=== PATIENT | female | born 1995 | race African-American/Black ===

== ENCOUNTER 2017-09-05 22:08 | Emergency (ER) | payer MEDICAID ==
[~2017-09-05] VITALS: Ht 157.5 cm; Wt 65.0 kg
[2017-09-05 22:10] VITALS: BP 137/65; PULSE 91; RESP 16; TEMP 98.5; O2SAT 100
--- NOTE | 2017-09-05 23:36 | PD ---
HPI Chief Complaint: Skin Problem Time Seen by Provider: 23:21 Travel History International Travel<30 days: Yes Contact w/Intl Traveler<30days: Yes Name of Country Traveled to: [place] Traveled to known affect area: Yes History of Present Illness HPI Patient comes in complaining of a rash over her anterior trunk ongoing for about a week. Patient states it was not itching her until her mother asked her if it was. Patient has been using Benadryl and [id number] creams with no improvement of symptoms. Patient reports rash started with a large area of the right outer upper quadrant of the right breast and then she began getting smaller spots on her trunk. Patient denies anything making it better or worse. Denies any known new allergen exposures. Denies any fevers, weight loss, or being unable similar rash. H&P was performed presence staffing and scheduling coordinator at all times. PFS Past Medical History Immunizations Current: Yes Tetanus Vaccination: Never Vaccinated Influenza Vaccination: No ?: Unknown LMP: 08/26/17 Social History Alcohol Use: No Tobacco Use: No Substance Use: No Allergies-Medications (Allergen,Severity, Reaction): Coded Allergies: No Known Allergies (Unverified , 09/05/17) Reported Meds & Prescriptions Reported Meds & Active Scripts Active No Active Prescriptions or Reported Medications Review of Systems Except as stated in HPI: all other systems reviewed are Neg Physical Exam Narrative GENERAL: Well-developed, well nourished, in no acute distress, and non-ill appearing. SKIN: Silvestre patch noted over right outer upper breast. Rashes appears to be somewhat [place] pattern. HEAD: Atraumatic. Normocephalic. EYES: Pupils equal and round. EOMI. No scleral icterus. No injection or drainage. ENT: No nasal bleeding or discharge. Mucous membranes pink and moist. NECK: Trachea midline. Supple. No nuclear rigidity. RESPIRATORY: No accessory muscle use. No respiratory distress. MUSCULOSKELETAL: No obvious deformities. No clubbing. No cyanosis. No edema. Full range of motion. NEUROLOGICAL: Awake and alert. No obvious cranial nerve deficits. Motor grossly within normal limits. Normal speech. PSYCHIATRIC: Appropriate mood and affect; insight and judgment normal. Data Data Last Documented VS Vital Signs Date Time Temp Pulse Resp B/P (MAP) Pulse Ox O2 Delivery O2 Flow Rate FiO2 09/05/17 23:49 09/05/17 22:10 98.5 91 16 100 Room Air Orders Orders Ed Discharge Order (09/05/17 23:29) MDM Medical Decision Making Medical Screen Exam Complete: Yes Emergency Medical Condition: Yes Differential Diagnosis Scabies, allergic reaction, cellulitis, abscess, pityriasis rosea Narrative Course The patient looks great and was non-ill appearing. There was no evidence to suggest scabies, cellulitis, folliculitis or abscess, Staph. Scalded Skin Syndrome, Toxic Shock, Toxic Epidermal necrolysis, Kawasakis, Measles, Rubella, cutaneous T cell lymphoma, Erythema Multiforme (minor or major). Plan of care was discussed with the patient and the patient is to follow up with their physician. The patient agreed with plan. Patient in no obvious distress upon re-evaluation. Any questions/concerns in reference to patient diagnosis/condition discussed and clarified prior to patient's discharge. Reinforced sheer importance of close follow up with patient 's primary physician or primary care clinic. Instructed patient to return to ED immediately, if symptoms return/worsen. Patient showed understanding of above instructions. Further instructions and recommendations were detailed in discharge paperwork. Patient ambulated without difficulty out of ED at discharge. Diagnosis Primary Impression: Pityriasis rosea Patient Instructions: General Instructions, Pityriasis rosea (ED) Additional Instructions: Follow-up with your primary care physician in 7-10 days for reevaluation. Use [id number] Claritin or Zyrtec or Benadryl as needed for itching. Follow instructions on the packaging. Return to the emergency department if symptoms get worse. Scripts No Active Prescriptions or Reported Meds Disposition: 01 DISCHARGE HOME Condition: Stable Alonso Kevin Sep 05, 2017 23:36
== END 2017-09-05 23:49 | disposition home or self-care (01) ==
LOC: NEPD 22:08
DX: L42 Pityriasis rosea (principal)
CPT/HCPCS: 99282

== ENCOUNTER 2018-10-07 20:31 | Inpatient (IN) ==
[2018-10-07] MEDS ORDERED: Vancomycin Inj 1,000 MG in Sodium Chlor 0.9% Inj 250 ML IV.SIG ONE (20:53)
[2018-10-07] MEDS ORDERED: Piperacil/Tazo 4.5 GM Premix 4.5 GM/100 ML BAG IV.SIG SCH (21:00)
[2018-10-07 21:56] LABS: Baso % (Auto) 0.3 % (0.0-2.0); Eos # (Auto) 0.2 th/mm3 (0.0-0.4); Eos % (Auto) 2.1 % (0.0-4.0); Hematocrit 34.4 % (35.0-46.0); Hemoglobin 11.6 gm/dL (11.6-15.3); Lymph # (Auto) 2.2 th/mm3 (1.0-4.8); Lymph % (Auto) 23.2 % (9.0-44.0); Mean Corpuscular HGB Conc 33.6 % (32.0-36.0); Mean Corpuscular Volume 80.2 fL (80.0-100.0); Mean Platelet Volume 8.1 fL (7.0-11.0); Mono # (Auto) 0.8 th/mm3 (0.0-0.9); Mono % (Auto) 8.3 % (0.0-8.0); Neut # (Auto) 6.2 th/mm3 (1.8-7.7); Neut % (Auto) 66.1 % (16.0-70.0); Platelet Count 370 th/mm3 (150-450); Red Blood Count 4.28 mil/mm3 (4.00-5.30); Red Cell Distribution Width 16.9 % (11.6-17.2); White Blood Count 9.4 th/mm3 (4.0-11.0)
--- NOTE | 2018-10-07 22:09 | ED ---
HPI General Chief complaint: Skin/Abscess/Foreign Body Stated complaint: lft leg boil Time Seen by Provider: 10/07/18 20:45 Source: patient Mode of arrival: ambulatory Limitations: no limitations History of Present Illness HPI narrative: This is a 23-year-old black female who presents emergency department complains of a left inner thigh infection. She was referred from the urgent care for further treatment in the ER after being treated twice prior. She states that she started approximately 10 days ago with redness, pain and swelling to the left inner thigh. She was seen 2 days ago at an urgent care and an incision and drainage has been performed. She was started on Bactrim and Keflex. She states that she was advised to return in 48 hours. She states that the area of redness, swelling and pain had gotten worse and she had had a subjective fever at home. So she was advised to come to the ER. Patient states that when she had her incision and drainage performed he did not seem to get significant pus to come out. Patient admits to feeling general malaise, increasing pain and subjective fever at home. Patient denies any nausea or vomiting. No abdominal pain. She denies any history of prior abscess. Related Data Home Medications Medication Instructions Recorded Confirmed cephalexin 500 mg PO QID 10/07/18 10/07/18 sulfamethoxazole-trimethoprim 1 tab PO BID 10/07/18 10/07/18 [Bactrim DS] Allergies Allergy/AdvReac Type Severity Reaction Status Date / Time No Known Allergies Allergy Unverified 11/08/17 13:30 Review of Systems ROS: all other systems reviewed are negative PMFSH Medical History Medical History Patient denies medical problems (Acute) Surgical History Surgical History No history of previous surgery (Acute) Family History Family History Other Family history normal Social History Social History Substance History: No History of Abuse Second Hand Smoke Exposure: No Smoking Status: Never smoker How Often Do You Have a Drink Containing Alcohol: Never Immunization History Tetanus Immunization: Unsure Exam Narrative Exam Narrative: GENERAL: Well-developed, well-nourished in no apparent distress. Nontoxic appearing. The patient is examined with the nurse present. HEAD: Normocephalic, atraumatic. EYES: Pupils equal round and reactive. Extraocular motions intact. No scleral icterus. No injection or drainage. ENT: Nose clear. Throat without erythema, tonsillar hypertrophy or exudate. Uvula midline. Airway patent. NECK: Trachea midline. Supple, nontender, moves head freely. No central bony tenderness or spasm. CARDIOVASCULAR: Regular rate and rhythm without murmurs, gallops, or rubs. RESPIRATORY: Clear to auscultation. Breath sounds equal bilaterally. No wheezes , rales, or rhonchi. GASTROINTESTINAL: Abdomen soft, non-tender, nondistended. No hepato-splenomegaly , or palpable masses. No guarding. EXTREMITIES: No clubbing, cyanosis, or edema. No joint tenderness. Examination of the patient's left inner thigh reveals a opening draining incision. Patient has surrounding erythema, warmth and induration. There is no fluctuance or pointing. The area measures approximately 8 x 8 cm. BACK: Nontender without deformity. No flank tenderness. NEUROLOGICAL: Awake, alert and oriented x 3 .Cranial nerves grossly intact. Motor and sensory grossly within normal limits. Normal speech. Course Reevaluation(s) Reevaluation #1: I was just notified that the patient has had mild hives associated with her vancomycin infusion. This has just completed. Patient denies any shortness of breath or difficulty swallowing. She does have a few scattered hives. Patient is given Benadryl 50 mg IV. Time: 23:23 Initial Documented Vital Signs Temperature 98.8 F 10/07/18 20:38 Pulse Rate 103 H 10/07/18 20:38 Respiratory Rate 18 10/07/18 20:38 Blood Pressure 135/62 10/07/18 20:38 Pulse Oximetry 100 10/07/18 20:38 Last Documented Vital Signs Temperature 98.6 F 10/08/18 16:05 Pulse Rate 88 10/08/18 16:05 Respiratory Rate 18 10/08/18 16:05 Blood Pressure 108/56 L 10/08/18 16:05 Pulse Oximetry 100 10/08/18 16:05 Medical Decision Making MDM Narrative Medical decision making narrative: IV access is obtained. Will send off for CBC , chemistry, blood cultures x2, wound culture. Patient is given vancomycin 1 g IV and Zosyn 4.5 mg IV. The patient has failed outpatient antibiotics and incision and drainage. I believe the patient will benefit from IV antibiotics. His has been discussed with the patient who agrees with the treatment plan Bedside ultrasound performed which shows cobblestoning but no localized abscess. This is performed in the presence of the nurse. I have who has agreed to admit the patient discussed the case with Dr. Smyth for IV antibiotics. Medical Screen Exam Complete: Yes Emergency Medical Condition: Yes Differential Diagnosis Differential Diagnosis: MDM: High Differential diagnoses: Abscess, folliculitis, cellulitis, lymphangitis, abrasion, contact dermatitis Lab Data Result diagrams: 10/08/18 07:36 10/08/18 07:36 Lab Results 10/07/18 10/07/18 10/08/18 Range/Units 21:49 21:49 07:36 WBC 9.4 5.6 (4.0-11.0) th/mm3 RBC 4.28 3.92 L (4.00-5.30) mil/mm3 Hgb 11.6 10.5 L (11.6-15.3) gm/dL Hct 34.4 L 32.5 L (35.0-46.0) % MCV 80.2 82.9 (80.0-100.0) fL MCH 27.0 26.9 L (27.0-34.0) pg MCHC 33.6 32.5 (32.0-36.0) % RDW 16.9 17.1 (11.6-17.2) % Plt Count 370 344 (150-450) th/mm3 MPV 8.1 8.6 (7.0-11.0) fL Neut % (Auto) 66.1 59.0 (16.0-70.0) % Lymph % (Auto) 23.2 27.3 (9.0-44.0) % [place] % (Auto) 8.3 H 9.8 H (0.0-8.0) % Eos % (Auto) 2.1 3.4 (0.0-4.0) % Baso % (Auto) 0.3 0.5 (0.0-2.0) % Neut # (Auto) 6.2 3.3 (1.8-7.7) th/mm3 Lymph # (Auto) 2.2 1.5 (1.0-4.8) th/mm3 [place] # (Auto) 0.8 0.5 (0.0-0.9) th/mm3 Eos # (Auto) 0.2 0.2 (0.0-0.4) th/mm3 Baso # (Auto) 0.0 0.0 (0.0-0.2) th/mm3 WBC Differential . . Differential Comment Auto diff final Auto diff final Sodium 136 (136-145) meq/L Potassium 3.2 L (3.5-5.1) meq/L Chloride 101 (98-107) meq/L Carbon Dioxide 25.5 (21.0-32.0) meq/L Anion Gap 10 (5-15) meq/L BUN 7 (7-18) mg/dL Creatinine 0.88 (0.50-1.00) mg/dL Estimated GFR Greater than 89 (>89) mL/min Random Glucose 85 (74-106) mg/dL Calcium 8.6 (8.5-10.1) mg/dL 10/08/18 Range/Units 07:36 WBC (4.0-11.0) th/mm3 RBC (4.00-5.30) mil/mm3 Hgb (11.6-15.3) gm/dL Hct (35.0-46.0) % MCV (80.0-100.0) fL MCH (27.0-34.0) pg MCHC (32.0-36.0) % RDW (11.6-17.2) % Plt Count (150-450) th/mm3 MPV (7.0-11.0) fL Neut % (Auto) (16.0-70.0) % Lymph % (Auto) (9.0-44.0) % [place] % (Auto) (0.0-8.0) % Eos % (Auto) (0.0-4.0) % Baso % (Auto) (0.0-2.0) % Neut # (Auto) (1.8-7.7) th/mm3 Lymph # (Auto) (1.0-4.8) th/mm3 [place] # (Auto) (0.0-0.9) th/mm3 Eos # (Auto) (0.0-0.4) th/mm3 Baso # (Auto) (0.0-0.2) th/mm3 WBC Differential Differential Comment Sodium 138 (136-145) meq/L Potassium 4.5 D (3.5-5.1) meq/L Chloride 108 H (98-107) meq/L Carbon Dioxide 22.2 (21.0-32.0) meq/L Anion Gap 8 (5-15) meq/L BUN 10 (7-18) mg/dL Creatinine 0.86 (0.50-1.00) mg/dL Estimated GFR Greater than 89 (>89) mL/min Random Glucose 72 L (74-106) mg/dL Calcium 8.6 (8.5-10.1) mg/dL Discharge Plan Discharge Disposition Patient Disposition: ED Admit(ED Internal Use Only) Discharge Condition Condition: Stable Discharge Order Discharge Orders: ED Use Only Admit Order (Routine); Ordered 10/07/18 Ordered By: Edmond Casiano Discharge Details Diagnosis: Abscess of left thigh, Cellulitis of left thigh Physicians Team ED Provider: Dena William ED Midlevel Provider: Edmond Casiano Primary Care Provider: Olive Tubbs Attending Provider: Andrea Guzman Status ED Status: Left Department Discharge Information Discharge Date/Time: 10/08/18 03:27
[2018-10-07 22:25] LABS: Anion Gap 10 meq/L (5-15); Blood Urea Nitrogen 7 mg/dL (7-18); Calcium 8.6 mg/dL (8.5-10.1); Carbon Dioxide 25.5 meq/L (21.0-32.0); Chloride 101 meq/L (98-107); Glomerular Filtration Rate Greater Than 89 mL/min (>89); Glucose,Random 85 mg/dL (74-106); Potassium 3.2 meq/L (3.5-5.1); Sodium 136 meq/L (136-145)
[2018-10-08] MEDS ORDERED: Vancomycin Consult Pharmacy OTHER PRN (02:30)
[2018-10-08] MEDS ORDERED: Bisacodyl 10 MG Supp RECTAL PRN (02:33)
[2018-10-08] MEDS ORDERED: Acetaminophen 325 MG Tablet PO PRN (02:33)
--- NOTE | 2018-10-08 03:28 | P.HP ---
History of Present Illness Service: [facility] Primary Care Physician: Olive Tubbs MD History of Present Illness: 23-year-old female with no significant past medical history presents to the emergency department for evaluation of the return of a boil on her left inner thigh. The patient was seen in urgent care 2 days ago where she had it lanced and was discharged with a prescription of Bactrim. She reports compliance with her antibiotic however the boil returned and was draining a small amount of purulent material. The patient was sent to the emergency department for further evaluation. She denies any fever/chills. Inpatient Certification: I certify that the inpatient services were ordered in accordance with Medicare regulations governing the order. This includes certification that hospital inpatient services are reasonable and necessary and in the case of services not specified as inpatient-only under 42 CFR 419.22(n), that they are appropriately provided as inpatient services in accordance to with the 2-midnight benchmark under 43 CFR 412.3(e) Estimated Total Length of Stay (Days): 2 Plans for Post Hospital Care: Home Review of Systems All other systems reviewed negative except as stated in HPI [facility] - History History Provided By: Patient - Medical History Medical History: Medical History (Last Reviewed 10/08/18 @ 03:25 by Lashon Smyth MD) Patient denies medical problems - Surgical History Surgical History: Surgical History (Last Reviewed 10/08/18 @ 03:25 by Lashon Smyth MD) No history of previous surgery - Family History Family History: Family History (Last Updated 10/08/18 @ 03:25 by Lashon Smyth MD) Other Family history normal - Tobacco History Second Hand Smoke Exposure: No Tobacco Use In Past 30 Days: No Smoking Status: Never smoker - Alcohol History How Often Do You Have a Drink Containing Alcohol: Monthly or less - Substance Use History Substance History: No History of Abuse - Immunization History Tetanus Immunization: Unsure Medications and Allergies Active Medications: Active Medications Acetaminophen (Tylenol) 650 mg PO Q4H PRN PRN Reason: Temp > 100.4 Al Hydroxide/Mg Hydroxide (Milk Of Magnesia Liq) 30 ml PO Q12H PRN PRN Reason: Mild Constipation Bisacodyl (Dulcolax Supp) 10 mg RECTAL DAILY PRN PRN Reason: SEVERE CONSITIPATION Diphenhydramine HCl (Benadryl Inj) 50 mg IV.PUSH Q6H PRN PRN Reason: itching Piperacillin/Tazobactam/Dextrose (Zosyn 4.5 Gm Premix) 4.5 gm in 100 mls @ 200 mls/hr IV.SIG ONCE UMESH Last Infusion: 10/08/18 00:08 Dose: Infused Piperacillin/Tazobactam/Dextrose (Zosyn 3.375 Gm Premix) 3.375 gm in 50 mls @ 100 mls/hr IV.SIG Q6H UMESH Lactulose (Lactulose Liq) 30 ml PO DAILY PRN PRN Reason: SEVERE CONSITIPATION Ondansetron HCl (Zofran Inj) 4 mg IV.PUSH Q6H PRN PRN Reason: NAUSEA OR VOMITING Pharmacy Profile Note (Vancomycin Consult Pharmacy) 1 each OTHER UNSCH PRN PRN Reason: Pharmacy to dose Senna/Docusate Sodium (Lizz-Colace) 1 tab PO BID UMESH Sennosides (Senokot) 17.2 mg PO Q12H PRN PRN Reason: Moderate Constipation Sodium Chloride (Ns Flush) 2 ml IV.FLUSH BID UMESH Sodium Chloride (Ns Flush) 2 ml IV.FLUSH PRN PRN PRN Reason: FLUSH AFTER USING IV ACCESS Allergies Allergy/AdvReac Type Severity Reaction Status Date / Time No Known Allergies Allergy Unverified 11/08/17 13:30 Home Medications Medication Instructions Recorded Confirmed Type cephalexin 500 mg PO QID 10/07/18 10/07/18 History sulfamethoxazole-trimethoprim 1 tab PO BID 10/07/18 10/07/18 History [Bactrim DS] Exam Vital signs: Vital Signs 10/07/18 20:38 10/07/18 23:47 Temperature 98.8 F Pulse Rate 103 H 80 Respiratory Rate 18 18 Blood Pressure 135/62 112/57 L Pulse Oximetry 100 98 Intake & Output 10/07/18 10/07/18 10/08/18 06:59 18:59 06:59 Intake Total 350 / 350 Balance 350 / 350 Weight 64.864 kg Intake: IV 350 / 350 Zosyn 4.5 GM Premix 4.5 gm In 100 / 100 100 ml @ 200 mls/hr IV.SIG ONCE UMESH Rx#:[id number] Vancomycin Inj 1,000 MG In NS 250 / 250 Inj 250 ML @ 250 mls/hr IV.SIG ONCE ONE Rx#:[id number] Narrative: Gen.: No acute distress Head: Normocephalic. Atraumatic. EENT: Pupils equal round and reactive to light. Nose without drainage. Airway intact. Throat without injection. Cardiovascular: Regular rate and rhythm. No murmurs, rubs or gallops. Respiratory: Lungs clear to auscultation bilaterally. No wheezes or rhonchi. Abdomen: Soft, nontender, nondistended. No peritoneal signs. Musculoskeletal: No gross deformities. No edema. Skin: Open draining incision on the left inner thigh with surrounding erythema, warmth and induration. No fluctuance. Neuro: Sensory and motor grossly intact. Cranial nerves II through XII grossly intact. Results - Labs CBC & Chem 7: 10/07/18 21:49 10/07/18 21:49 Labs: Laboratory Results - last 24 hr 10/07/18 10/07/18 21:49 21:49 WBC 9.4 RBC 4.28 Hgb 11.6 Hct 34.4 L MCV 80.2 MCH 27.0 MCHC 33.6 RDW 16.9 Plt Count 370 MPV 8.1 Neut % (Auto) 66.1 Lymph % (Auto) 23.2 [place] % (Auto) 8.3 H Eos % (Auto) 2.1 Baso % (Auto) 0.3 Neut # (Auto) 6.2 Lymph # (Auto) 2.2 [place] # (Auto) 0.8 Eos # (Auto) 0.2 Baso # (Auto) 0.0 WBC Differential . Differential Comment Auto diff final Sodium 136 Potassium 3.2 L Chloride 101 Carbon Dioxide 25.5 Anion Gap 10 BUN 7 Creatinine 0.88 Estimated GFR Greater than 89 Random Glucose 85 Calcium 8.6 Caprini VTE Risk Assessment Caprini VTE Risk Assessment: No/Low Risk (score <= 1) Caprini Risk Assessment Model: Point Value = 1 Point Value = 2 Point Value = 3 Point Value = 5 Age 41-60 Minor surgery BMI > 25 kg/m2 Swollen legs Varicose veins or History of unexplained or recurrent spontaneous Oral contraceptives or hormone replacement Sepsis (< 1 month) Serious lung disease, including pneumonia (< 1 month) Abnormal pulmonary function Acute myocardial infarction Congestive heart failure (< 1 month) History of inflammatory bowel disease Medical patient at bed rest Age 61-74 Arthroscopic surgery Major open surgery (> 45 min) Laparoscopic surgery (> 45 min) Malignancy Confined to bed (> 72 hours) Immobilizing plaster cast Central venous access Age >= 75 History of VTE Family history of VTE Factor V Leiden Prothrombin [id number] Lupus anticoagulant Anticardiolipin antibodies Elevated serum homocysteine Heparin-induced thrombocytopenia Other congenital or acquired thrombophilia Stroke (< 1 month) Elective arthroplasty Hip, pelvis, or leg fracture Acute spinal cord injury (< 1 month) Prophylaxis Regimen: Total Risk Factor Score Risk Level Prophylaxis Regimen 0-1 Low Early ambulation 2 Moderate Order ONE of the following: *Sequential Compression Device (SCD) *Heparin 5000 units SQ BID 3-4 Higher Order ONE of the following medications: *Heparin 5000 units SQ TID *Enoxaparin/Lovenox 40 mg SQ daily (WT < 150 kg, CrCl > 30 mL/min) *Enoxaparin/Lovenox 30 mg SQ daily (WT < 150 kg, CrCl > 10-29 mL/min) *Enoxaparin/Lovenox 30 mg SQ BID (WT < 150 kg, CrCl > 30 mL/min) AND/OR *Sequential Compression Device (SCD) 5 or more Highest Order ONE of the following medications: *Heparin 5000 units SQ TID (Preferred with Epidurals) *Enoxaparin/Lovenox 40 mg SQ daily (WT < 150 kg, CrCl > 30 mL/min) *Enoxaparin/Lovenox 30 mg SQ daily (WT < 150 kg, CrCl > 10-29 mL/min) *Enoxaparin/Lovenox 30 mg SQ BID (WT < 150 kg, CrCl > 30 mL/min) AND *Sequential Compression Device (SCD) Assessment and Plan - Plan Assessment/plan: 1. Cellulitis failed outpatient therapy Status post 2 days of Bactrim without improvement Bedside ultrasound done in the emergency department revealed cobblestoning but no localized abscess Vancomycin/Zosyn Wound culture pending Blood cultures pending 2. Hypokalemia Potassium 3.2 Status post p.o. repletion Monitor BMP FEN Regular diet Electrolytes: As above
[2018-10-08] MEDS: Piperacil/Tazo 3.375 GM Premix 3.375 GM/50 ML PIGGYBACK IV.SIG SCH ×4 (06:25→23:31)
[2018-10-08] MEDS: Senna/Docusate Sodium 8.6/50 MG Tablet PO SCH ×2 (08:03→21:29)
[2018-10-08 09:11] LABS: Baso % (Auto) 0.5 % (0.0-2.0); Eos # (Auto) 0.2 th/mm3 (0.0-0.4); Eos % (Auto) 3.4 % (0.0-4.0); Hematocrit 32.5 % (35.0-46.0); Hemoglobin 10.5 gm/dL (11.6-15.3); Lymph # (Auto) 1.5 th/mm3 (1.0-4.8); Lymph % (Auto) 27.3 % (9.0-44.0); Mean Corpuscular HGB Conc 32.5 % (32.0-36.0); Mean Corpuscular Hemoglobin 26.9 pg (27.0-34.0); Mean Corpuscular Volume 82.9 fL (80.0-100.0); Mean Platelet Volume 8.6 fL (7.0-11.0); Mono # (Auto) 0.5 th/mm3 (0.0-0.9); Mono % (Auto) 9.8 % (0.0-8.0); Neut # (Auto) 3.3 th/mm3 (1.8-7.7); Platelet Count 344 th/mm3 (150-450); Red Blood Count 3.92 mil/mm3 (4.00-5.30); Red Cell Distribution Width 17.1 % (11.6-17.2); White Blood Count 5.6 th/mm3 (4.0-11.0)
[2018-10-08 09:55] LABS: Anion Gap 8 meq/L (5-15); Blood Urea Nitrogen 10 mg/dL (7-18); Calcium 8.6 mg/dL (8.5-10.1); Carbon Dioxide 22.2 meq/L (21.0-32.0); Chloride 108 meq/L (98-107); Glomerular Filtration Rate Greater Than 89 mL/min (>89); Glucose,Random 72 mg/dL (74-106); Potassium 4.5 meq/L (3.5-5.1); Sodium 138 meq/L (136-145)
[2018-10-08] MEDS: Vancomycin Inj 1,000 MG in Sodium Chlor 0.9% Inj 250 ML IV.SIG SCH ×3 (10:11→21:23)
--- NOTE | 2018-10-08 12:58 | P.PNADD ---
Addendum to Inpatient Note Reason for Addendum: Additional Documentation Additional information: S: Ms Daniel is being transferred to the Family Medicine inpatient service from [facility] since she is followed in the [facility] by Dr Tubbs. It is reported that when administering the first dose of Vancomycin that she had hives that appeared when administering the IV antibiotic, but they have disappeared when I am seeing her in her room. Otherwise, she has been fine overnight. She also reports having hives when taking the Bactrim prescribed to her in clinic two days ago. She is taking no other medications. I spoke to her mother via phone to explain why she is in the hospital to take IV antibiotics versus continued outpatient treatment with Bactrim. I also explained that wound culture was taken and is pending. We will plan to keep her overnight on IV antibiotics and pre-treat her with Benadryl to aid in the rash. Hopefully we will have a wound culture tomorrow with speciation to ensure discharge on a PO regimen sensitive to the bacterial culture. O: Vital Signs - 8 hr 10/08/18 07:58 10/08/18 12:15 Temperature 98.4 F 98.0 F Pulse Rate 95 H 87 Respiratory Rate 20 18 Blood Pressure 101/57 L 113/58 L Pulse Oximetry 100 100 GENERAL: 23 YO female lying in bed, comfortable and in NAD. SKIN: Warm and dry. Bandage over her proximal left medial thigh with dry staining on the bandage. When bandage is removed, there is a 4 mm punctate hole draining scant purulent material with surrounding 6 cm x 6 cm area of induration but no fluctuance. A scant amount of serosanguinous fluid expressed with deeper palpation. Area is TTP. Cellulitis appears to be nearly resolved. HEAD: Normocephalic. Atraumatic. MMM. EYES: No scleral icterus. No injection or drainage. EOMI. NECK: Supple, trachea midline. Normal thyroid. CARDIOVASCULAR: Regular rate and rhythm without murmurs, gallops, or rubs. RESPIRATORY: Breath sounds equal bilaterally. No accessory muscle use. GASTROINTESTINAL: Abdomen soft, non-tender, nondistended. MUSCULOSKELETAL: No cyanosis, or edema. Moves all spontaneously. A/P: 23 YO female with proximal medial left thigh furuncle s/p I&D 2 days ago failed outpt treatment with Bactrim and admitted for left thigh cellulitis. US of left thigh showing no appreciable fluid collection for repeat drainage. 1. Cellulitis failed outpatient therapy - resolving Status post I&D and 2 days of Bactrim without improvement Bedside ultrasound done in the emergency department revealed cobblestoning but no localized abscess -Continue Vancomycin 1g q12h IV with instructions given to pre-medicate with Benadryl IV and infuse Vancomycin over 1-2 hours -Benadryl 50 mg IV q6h PRN; pre-medicate prior to Vancomycin administration as above -Pharmacy Vancomycin consult -Continue Zosyn 3.375 gm q6h IV Wound culture pending Blood cultures pending -Pt advised to increase PO intake 2. Hypokalemia Potassium 3.2 Status post p.o. repletion Monitor BMP FEN/GI/PPx: Regular diet Electrolytes: As above PO fluids GI: No ppx indicated PPx: SCDs Tylenol 650 mg PO PRN pain/fever Dispo: 1-2 days DW Megha Maki and Megan
[2018-10-09] MEDS: Piperacil/Tazo 3.375 GM Premix 3.375 GM/50 ML PIGGYBACK IV.SIG SCH (06:03)
[2018-10-09 07:40] LABS: Hematocrit 33.6 % (35.0-46.0); Hemoglobin 11.2 gm/dL (11.6-15.3); Mean Corpuscular HGB Conc 33.3 % (32.0-36.0); Mean Corpuscular Hemoglobin 27.1 pg (27.0-34.0); Mean Corpuscular Volume 81.4 fL (80.0-100.0); Mean Platelet Volume 8.2 fL (7.0-11.0); Platelet Count 394 th/mm3 (150-450); Red Blood Count 4.12 mil/mm3 (4.00-5.30); Red Cell Distribution Width 16.9 % (11.6-17.2); White Blood Count 4.3 th/mm3 (4.0-11.0)
[2018-10-09 08:03] LABS: Anion Gap 10 meq/L (5-15); Blood Urea Nitrogen 10 mg/dL (7-18); Calcium 8.7 mg/dL (8.5-10.1); Carbon Dioxide 21.5 meq/L (21.0-32.0); Chloride 107 meq/L (98-107); Glomerular Filtration Rate Greater Than 89 mL/min (>89); Glucose,Random 88 mg/dL (74-106); Sodium 138 meq/L (136-145)
[2018-10-09 08:04] LABS: Glomerular Filtration Rate Greater Than 89 mL/min (>89)
[2018-10-09 08:07] LABS: Vancomycin,Trough 6.2 mcg/mL (5.0-10.0)
[2018-10-09] MEDS: Senna/Docusate Sodium 8.6/50 MG Tablet PO SCH (08:45)
[2018-10-09] MEDS ORDERED: Pharmacy Ordered Lab Info OTHER ONE (09:45)
[2018-10-09] MEDS: Vancomycin Inj 1,000 MG in Sodium Chlor 0.9% Inj 250 ML IV.SIG SCH (10:38)
--- NOTE | 2018-10-09 11:19 | P.PNFP ---
Subjective Interval history: Patient reports that her pain, redness, swelling overall much improved. Discussed plan of care with patient and her mother, who expressed understanding. Discussed wound care instructions and importance of finishing course of antibiotics. <Kwan PazEugenioLuis Antonio - 10/09/18 11:19> Results - Labs Result diagrams: 10/09/18 07:07 10/09/18 07:07 <Andrea Guzman - 10/09/18 14:02> Abnormal lab results 10/09/18 Range/Units 07:07 Hgb 11.2 L (11.6-15.3) gm/dL Hct 33.6 L (35.0-46.0) % Short CBC 10/09/18 Range/Units 07:07 WBC 4.3 (4.0-11.0) th/mm3 Hgb 11.2 L (11.6-15.3) gm/dL Hct 33.6 L (35.0-46.0) % Plt Count 394 (150-450) th/mm3 [facility] 10/09/18 10/09/18 07:07 07:07 Sodium 138 Potassium 4.0 Chloride 107 Carbon Dioxide 21.5 BUN 10 Creatinine 0.84 0.84 Calcium 8.7 <Andrea Guzman - 10/09/18 14:02> Abnormal lab results 10/09/18 Range/Units 07:07 Hgb 11.2 L (11.6-15.3) gm/dL Hct 33.6 L (35.0-46.0) % Short CBC 10/09/18 Range/Units 07:07 WBC 4.3 (4.0-11.0) th/mm3 Hgb 11.2 L (11.6-15.3) gm/dL Hct 33.6 L (35.0-46.0) % Plt Count 394 (150-450) th/mm3 [facility] 10/09/18 10/09/18 07:07 07:07 Sodium 138 Potassium 4.0 Chloride 107 Carbon Dioxide 21.5 BUN 10 Creatinine 0.84 0.84 Calcium 8.7 <Kwan PazEugenio - 10/09/18 11:19> Physical Exam Vital signs: Vital Signs 10/08/18 16:05 10/08/18 20:00 10/09/18 00:55 Temperature 98.6 F 99.1 F 97.3 F L Pulse Rate 88 89 81 Respiratory Rate 18 18 18 Blood Pressure 108/56 L 106/64 95/52 L Pulse Oximetry 100 97 99 10/09/18 05:00 10/09/18 08:26 Temperature 97.5 F L 97.9 F Pulse Rate 77 86 Respiratory Rate 18 18 Blood Pressure 114/55 L 124/59 L Pulse Oximetry 100 99 Intake & Output 10/08/18 10/09/18 10/09/18 18:59 06:59 18:59 Intake Total 400 / 400 800 / 800 Balance 400 / 400 800 / 800 Weight 63 kg Intake: IV 400 / 400 350 / 350 Zosyn 3.375 GM Premix 3.375 gm 150 / 150 100 / 100 In 50 ml @ 100 mls/hr IV.SIG Q6H [facility] Rx#:[id number] Vancomycin Inj 1,000 MG In NS 250 / 250 250 / 250 Inj 250 ML @ 250 mls/hr IV.SIG Q12H [facility] Rx#:[id number] Oral 450 / 450 Other: # Voids 1 3 Date of Last Bowel Movement 10/06/18 10/09/18 # Bowel Movements 1 <Andrea Guzman - 10/09/18 14:02> Vital Signs 10/08/18 12:15 10/08/18 16:05 10/08/18 20:00 Temperature 98.0 F 98.6 F 99.1 F Pulse Rate 87 88 89 Respiratory Rate 18 18 18 Blood Pressure 113/58 L 108/56 L 106/64 Pulse Oximetry 100 100 97 10/09/18 00:55 10/09/18 05:00 10/09/18 08:26 Temperature 97.3 F L 97.5 F L 97.9 F Pulse Rate 81 77 86 Respiratory Rate 18 18 18 Blood Pressure 95/52 L 114/55 L 124/59 L Pulse Oximetry 99 100 99 Intake & Output 10/08/18 10/09/18 10/09/18 18:59 06:59 18:59 Intake Total 400 / 400 800 / 800 Balance 400 / 400 800 / 800 Weight 63 kg Intake: IV 400 / 400 350 / 350 Zosyn 3.375 GM Premix 3.375 gm 150 / 150 100 / 100 In 50 ml @ 100 mls/hr IV.SIG Q6H [facility] Rx#:[id number] Vancomycin Inj 1,000 MG In NS 250 / 250 250 / 250 Inj 250 ML @ 250 mls/hr IV.SIG Q12H [facility] Rx#:[id number] Oral 450 / 450 Other: # Voids 1 3 Date of Last Bowel Movement 10/06/18 10/09/18 # Bowel Movements 1 <Eugenio Andrews - 10/09/18 11:19> Narrative: GENERAL: 23 YO female lying in bed, comfortable and in NAD. SKIN: Warm and dry. Bandage over her proximal left medial thigh with open incision measuring approximately 1 cm x 1 cm on the left inner/medial thigh with NO surrounding erythema or warmth, but there is surrounding 5 cm x 5 cm area of induration but no fluctuance. No fluid expressed with deeper palpation. Area is mildly TTP. Cellulitis appears to be almost completely resolved. HEAD: Normocephalic. Atraumatic. MMM. EYES: No scleral icterus. No injection or drainage. EOMI. NECK: Supple, trachea midline. CARDIOVASCULAR: Regular rate and rhythm without murmurs, gallops, or rubs. RESPIRATORY: Breath sounds equal bilaterally. No accessory muscle use. GASTROINTESTINAL: Abdomen soft, non-tender, nondistended. MUSCULOSKELETAL: No cyanosis, or edema. Moves all extremities spontaneously. <KwanEugenio Eddy - 10/09/18 11:19> Assessment and Plan - Assessment and Plan A/P: 23 YO female with proximal medial left thigh furuncle s/p I&D 2 days ago failed outpt treatment with Bactrim (hives with Bactrim and Vancomycin) and admitted for left thigh cellulitis. US of left thigh showing no appreciable fluid collection for repeat drainage. 1. Cellulitis failed outpatient therapy - resolving Status post I&D and 2 days of Bactrim without improvement; Bactrim and Vanco gave hives Bedside ultrasound done in the emergency department revealed cobblestoning but no localized abscess -Continue Vancomycin 1g q12h IV with instructions given to pre-medicate with Benadryl IV and infuse Vancomycin over 1-2 hours -Benadryl 50 mg IV q6h PRN; pre-medicate prior to Vancomycin administration as above -Pharmacy Vancomycin consult -Continue Zosyn 3.375 gm q6h IV Wound culture grew staph aureus sensitive to everything except erythromycin; plan to discharge on Keflex -IV antibiotics started on 10/08/2018; plan to treat for a total of 5-14 days Blood cultures show NGTD -Pt advised to increase PO intake 2. Hypokalemia resolved Potassium 4.0 Status post p.o. repletion FEN/GI/PPx: Regular diet Electrolytes: As above PO fluids GI: No ppx indicated PPx: SCDs Tylenol 650 mg PO PRN pain/fever Dispo: likely today s/d/w Dr. Guzman, Dr. Tello <Eugenio Andrews - 10/09/18 11:19> - Attending Attestation The exam, history, and the medical decision-making described in the above note were completed with the assistance of the resident physician. I reviewed and agree with the findings presented. I attest that I had a [id number] encounter with the patient on the same day, and personally performed and documented my assessment and findings in the medical record. <Andrea Guzman - 10/09/18 14:02>
--- NOTE | 2018-10-12 10:57 | P.DS ---
Date of admission: 10/07/18 23:58 Primary care physician: Olive Tubbs MD Brief History from admission: 23-year-old female with no significant past medical history presents to the emergency department for evaluation of the return of a boil on her left inner thigh. The patient was seen in urgent care 2 days ago where she had it lanced and was discharged with a prescription of Bactrim. She reports compliance with her antibiotic however the boil returned and was draining a small amount of purulent material. The patient was sent to the emergency department for further evaluation. She denies any fever/chills. DS: Medications - Discharge Medications Prescriptions: cephalexin [Keflex] 500 mg PO QID 13 Days #104 cap DS: Summary - Time Spent with Patient Total time spent providing and/or coordinating discharge services: - Quality: VTE Deep Vein Thrombosis/Pulmonary Embolism Present on Admission: No Results Labs on day of discharge: Preliminary micro results at discharge 10/07/18 21:49 Aerobic Blood Culture - Preliminary Blood - Peripheral No growth in 4 days Anaerobic Blood Culture - Preliminary No growth in 4 days 10/07/18 21:44 Aerobic Blood Culture - Preliminary Blood - Peripheral No growth in 4 days Anaerobic Blood Culture - Preliminary No growth in 4 days Discharge Plan - Discharge Disposition Patient Disposition: 01 Discharge Home - Discharge Condition Condition: Stable - Discharge Order Discharge Orders: Discharge Order (Routine); Ordered 10/09/18 Ordered By: Kalli Berry R1 - Physicians Team Primary Care Provider: Olive Tubbs Attending Provider: Andrea Guzman
== END 2018-10-09 11:15 | disposition home or self-care (01) | DRG 603 ==
LOC: NEPB 20:31 → NEDA 23:58 → N05 10-08 03:27 → NEDA 10-08 03:27
PROVIDERS: ADMIT Family Medicine; ATTEND Family Medicine
CPT/HCPCS: 80048; 80202; 82565; 85025; 85027; 86403; 87040; 87070; 87147; 87186; 87205; 90765; 90775; 96365; 96375; 99285; J1200; J2543; J3370; J7050